=== PATIENT | male | born 2000 | race Native Hawaiian/Other Pacific Islander ===

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

== ENCOUNTER 2019-04-30 09:43 | Outpatient (CLI) | payer OTHER | END 2019-04-30 09:59 | disposition short-term general hospital (02) | LOC: AMB 09:43 | DX: R10.9 Unspecified abdominal pain (principal); R11.2 Nausea with vomiting, unspecified | CPT/HCPCS: A0425; A0427 ==

== ENCOUNTER 2019-04-30 10:02 | Emergency (ER) | payer OTHER ==
[~2019-04-30] VITALS: Ht 175.3 cm; Wt 81.6 kg
[2019-04-30 10:02] VITALS: TEMP 97.3
[2019-04-30 10:28] LABS: PLATELET COUNT 300 K/uL (142-355)
[2019-04-30 10:36] LABS: POTASSIUM 3.9 mmol/L (3.6-5.2)
[2019-04-30 15:08] VITALS: BP 122/68
== END 2019-04-30 15:08 | disposition home or self-care (01) ==
LOC: ED 10:02
PROVIDERS: Emergency Medicine
DX: R10.30 Lower abdominal pain, unspecified (principal); D72.828 Other elevated white blood cell count
CPT/HCPCS: 80053; 81000; 82150; 83690; 85027; 96365; 96375; 99284; J0696; J1885; Q9963

== ENCOUNTER 2022-08-26 18:41 | Emergency (ER) | payer OTHER ==
[~2022-08-26] VITALS: Ht 162.6 cm; Wt 59.0 kg
[2022-08-26 20:22] LABS: PLATELET COUNT 271 K/uL (142-355)
[2022-08-26 20:34] LABS: POTASSIUM 3.9 mmol/L (3.6-5.2)
[2022-08-26 21:01] LABS: PARTIAL THROMBOPLASTIN TIME 26.1 SECONDS (24.5-33.6)
[2022-08-26 22:45] VITALS: BP 107/52; TEMP 98.2
== END 2022-08-26 22:45 | disposition home or self-care (01) ==
LOC: ED 18:41
PROVIDERS: Family Medicine
DX: F19.90 Other psychoactive substance use, unspecified, uncomplicated (principal)
CPT/HCPCS: 80053; 80320; 82550; 84484; 85027; 85610; 85730; 93005; 99283

== ENCOUNTER 2022-09-07 07:38 | Emergency (ER) | payer OTHER ==
[~2022-09-07] VITALS: Ht 170.2 cm; Wt 72.6 kg
[2022-09-07 07:49] VITALS: TEMP 97.6
[2022-09-07 08:34] VITALS: BP 118/72
== END 2022-09-07 08:30 | disposition home or self-care (01) ==
LOC: ED 07:38
DX: F10.129 Alcohol abuse with intoxication, unspecified (principal); F19.10 Other psychoactive substance abuse, uncomplicated; F17.210 Nicotine dependence, cigarettes, uncomplicated
CPT/HCPCS: 99281

== ENCOUNTER 2022-11-29 11:27 | Emergency (ER) | payer OTHER ==
[~2022-11-29] VITALS: Ht 170.2 cm; Wt 62.6 kg
[2022-11-29 11:36] VITALS: BP 136/80; TEMP 98.2
== END 2022-11-29 12:45 | disposition home or self-care (01) ==
LOC: ED 11:27
DX: K02.9 Dental caries, unspecified (principal)
CPT/HCPCS: 96372; 99283; J1885